=== PATIENT | male | born 2000 | race Caucasian/White ===

== ENCOUNTER 2020-06-13 03:15 | Observation (INO) ==
[2020-06-13] MEDS ORDERED: AMPICILLIN/SULBACTAM SOD 3,000 MG in 0.9 % SODIUM CHLORIDE 100 ML IV STA (04:44)
[2020-06-13 05:11] LABS: Basophils # (auto) 0.01 K/uL (0-0.2); Basophils % (auto) 0.1 %; Eosinophils # (auto) 0.14 K/uL (0-0.5); Eosinophils % (auto) 1.4 %; Hematocrit (blood only) 43.1 % (42-52); Hemoglobin 15.6 g/dL (14.0-18.0); Immature Granulocytes # (auto) 0.02 K/uL (0.00-0.02); Immature Granulocytes % (auto) 0.2 %; Lymphocytes # (auto) 1.12 K/uL (1.2-3.4); Lymphocytes % (auto) 11.5 %; Mean Corpuscular Hemoglobin 32.4 pg (25-34); Mean Corpuscular Hgb Conc 36.2 g/dL (32-36); Mean Corpuscular Volume 89.6 fL (80-100); Mean Platelet Volume 8.7 fL (7.4-10.4); Monocytes # (auto) 0.56 K/uL (0.11-0.59); Monocytes % (auto) 5.8 %; Neutrophils # (auto) 7.88 K/uL (1.4-6.5); Platelet Count 317 K/uL (130-400); RDW Coefficient of Variation 12.4 % (11.5-14.5); RDW Standard Deviation 40.5 fL (36.4-46.3); Red Blood Count 4.81 M/uL (4.7-6.1); White Blood Count 9.73 K/uL (4.8-10.8)
[2020-06-13] MEDS ORDERED: ONDANSETRON INJ 2 MG/ML 2 ML VIAL IV STA (05:17)
[2020-06-13] MEDS ORDERED: fentaNYL citrate 100 MCG/2 ML VIAL IV STA (05:17)
[2020-06-13] MEDS ORDERED: ACETAMINOPHEN 1000 MG/100 ML IV IV STA (05:17)
[2020-06-13 05:28] LABS: BUN Creatinine Ratio 18.8 (10-20); Calcium 8.5 mg/dl (8.5-10.1); Creatinine Clr Calc Pharmacy 150.9 ml/min; Est GFR (African American) 135.5; Est GFR (Non-African American) 116.9; Potassium 3.4 mmol/L (3.5-5.1)
[2020-06-13 05:30] LABS: Albumin Globulin Ratio 1.1 (0.9-2); Bilirubin,Total 0.2 mg/dl (0.2-1); Globulin 3.7 gm/dl (2.5-4.0); Total Protein 7.7 gm/dl (6.4-8.2)
[2020-06-13 06:23] LABS: Influenza A virus by PCR Negative (Neg); Influenza B virus by PCR Negative (Neg); RSV by PCR Negative (Neg); SARS CoV2 RNA(COVID-19) InHosp NEGATIVE (Negative)
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
--- NOTE | 2020-06-13 07:33 | CT Scan Report ---
CT head/brain wo con CLINICAL HISTORY: Head trauma. COMPARISON STUDY: No previous studies for comparison. TECHNIQUE: Axial CT of the brain is performed from the vertex to the skull base. IV contrast was not administered for this examination. A dose lowering technique was utilized adhering to the principles of ALARA. CT DOSE: 887.42 mGy.cm FINDINGS: No intra or extra-axial mass lesions are visualized. There is no CT evidence of acute cortical infarc tion. There is no evidence of midline shift. There is no acute hemorrhage. No calvarial fractures ar e visualized. There is no evidence of pathologic ventricular dilatation. There is no evidence of acute sinusitis IMPRESSION: No acute intracranial findings ACT 112: Negative or not required by law. Electronically signed by: Hieu Grey M.D. 06/13/2020 7:32 AM
--- NOTE | 2020-06-13 08:33 | CT Scan Report ---
CT facial bones wo con CT DOSE: CLINICAL HISTORY: Facial pain status post trauma COMPARISON STUDY: No previous studies for comparison. TECHNIQUE: Helical images were acquired in the transverse plane. The study was reviewed and analyzed on the independent 3-D workstation. A dose lowering technique was utilized adhering to the principle s of ALARA. The pterygoid plates appear intact. The zygomatic arches appear intact. The globes appear intact. There is no evidence of orbital emphysema. The orbital romero and floor appear intact. There is no evidence of mandibular condyle dislocation. There is a vertical fracture through the anterior body of the right hemimandible. There is overlying soft tissue swelling and gas. IMPRESSION: 1. Vertical fracture through the anterior body of the right hemimandible. 2. No evidence of condylar dislocation. ACT 112: Negative or not required by law. Electronically signed by: Hieu Grey M.D. 06/13/2020 8:31 AM
--- NOTE | 2020-06-13 09:11 | Anesthesiology Consultation ---
Date of Service June 13, 2020 Assessment & Plan Chart Review Chart Review: Acceptable Risk for Surgery Consults Requested none discussed risks of nasal intub with pt. he knows to expected postop nasal discomfort. plan for glidescope to minimize jaw movement. postop wiring per surgeon. consented. ASA ASA2 Proposed Anesthesia Anesthesia Type: General (nasal ETT requested by surgeon) Risk / Benefits Reviewed With: PT / POA / Parent / Guardian, Accepts Plan and Informed Consent Obtained History Surgery Operation Date: 06/13/20 10:00 Proposed Procedures p Closed Reduction Mandible - Nick Prabhakar, DMD Height/Weight Height: 5 ft 11 in Weight: 99.3 kg Allergies Allergy/AdvReac Type Severity Reaction Status Date / Time amoxicillin [From Augmentin] Allergy Severe Hives Unverified 06/13/20 07:00 clavulanic acid Allergy Severe Hives Unverified 06/13/20 07:00 [From Augmentin] Medications Home Medications Medication Instructions Recorded Confirmed Last Taken No Known Home Medications 06/13/20 06/13/20 Unknown NPO Date Last Intake of Fluids: 06/13/20 Time Last Intake of Fluids: 01:30 Date Last Intake of Solids: 06/12/20 Time Last Intake of Solids: 20:00 Past Medical History Medical History Patient denies medical problems Exercise / Class Metabolic Activity II 4-5 Yardwork/Stairs/Walk up hill Past Surgical History Surgical History (Updated 06/13/20 @ 09:30 by Temitope Benavidez DO) H/O eye surgery Past Anesthesia History No Hx of Anesthesia Complications and No Family Hx of Anesthesia Complications History of PONV No Hx of PONV and No Hx of Motion Sickness Social History Smoking Status: Never smoker Physical Exam Vital Signs Last Vital Signs Temp 37.0 C 06/13/20 03:17 Pulse 103 H 06/13/20 08:49 Resp 18 06/13/20 08:49 BP 140/75 06/13/20 08:49 Pulse Ox 98 06/13/20 08:49 ENMT Nose: + face asymmetric, + facial edema and + facial tenderness Mouth: + TMJ abnormality, + mouth trauma, + restricted motion of mouth and + loose teeth Thyromental Distance: > or= 3.5 Finger Breadths Mallampati Class: III lower right bicuspid loose/involved in fx. Significant pain in opening. MP3 secondary to poor mouth opening and pain. Neck normal visual inspection and trachea midline; neck extension not limited Respiratory normal respiratory effort Auscultation: lungs clear to auscultation bilaterally Cardiovascular Rate/Rhythm: regular rate and regular rhythm Heart Sounds: no murmur Musculoskeletal Spine: normal cervical ROM Extremities: full ROM of extremities Neurologic moves all extremities Psychiatric Orientation: alert and oriented x 3 Testing Laboratory Results 06/13/20 Unknown 06/13/20 Unknown 06/13/20 COVID cepheid neg Other Testing 06/13/20 CT facial bones wo con CT DOSE: CLINICAL HISTORY: Facial pain status post trauma COMPARISON STUDY: No previous studies for comparison. TECHNIQUE: Helical images were acquired in the transverse plane. The study was reviewed and analyzed on the independent 3-D workstation. A dose lowering technique was utilized adhering to the principles of ALARA. The pterygoid plates appear intact. The zygomatic arches appear intact. The globes appear intact. There is no evidence of orbital emphysema. The orbital romero and floor appear intact. There is no evidence of mandibular condyle dislocation. There is a vertical fracture through the anterior body of the right hemimandible. There is overlying soft tissue swelling and gas. IMPRESSION: 1. Vertical fracture through the anterior body of the right hemimandible. 2. No evidence of condylar dislocation. 06/13/20 CT head/brain wo con CLINICAL HISTORY: Head trauma. COMPARISON STUDY: No previous studies for comparison. TECHNIQUE: Axial CT of the brain is performed from the vertex to the skull base. IV contrast was not administered for this examination. A dose lowering technique was utilized adhering to the principles of ALARA. CT DOSE: 887.42 mGy.cm FINDINGS: No intra or extra-axial mass lesions are visualized. There is no CT evidence of acute cortical infarction. There is no evidence of midline shift. There is no acute hemorrhage. No calvarial fractures are visualized. There is no evidence of pathologic ventricular dilatation. There is no evidence of acute sinusitis IMPRESSION: No acute intracranial findings
[2020-06-13] MEDS ORDERED: MIDAZOLAM HCL 1 MG/ML 2ML VIAL ONE (09:28)
[2020-06-13] MEDS ORDERED: LIDOCAINE HCL 2% 2 ML VIAL/AMP(20MG/ML) INFIL ONE (09:28)
[2020-06-13] MEDS ORDERED: PROPOFOL IV EMULSION 10 MG/ML 20 ML VIAL IV ONE (09:28)
[2020-06-13] MEDS ORDERED: ONDANSETRON INJ 2 MG/ML 2 ML VIAL ONE (09:28)
[2020-06-13] MEDS ORDERED: DEXAMETHASONE SOD INJ 4 MG/ML VIAL ONE (09:28)
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
[2020-06-13] MEDS ORDERED: fentaNYL citrate 100 MCG/2 ML VIAL ONE ×2 (09:29→10:41)
[2020-06-13] MEDS ORDERED: ONDANSETRON INJ 2 MG/ML 2 ML VIAL IV PRN ×2 (09:36→11:58)
[2020-06-13] MEDS ORDERED: ATROPINE SULFATE 0.1 MG/ML 10ML SYR IV PRN (09:36)
[2020-06-13] MEDS ORDERED: MEPERIDINE HCL 25 MG/ML CARP/VIAL IV PRN (09:36)
[2020-06-13] MEDS ORDERED: OXYMETAZOLINE 0.05% 30 ML BTL ONE (09:36)
[2020-06-13] MEDS ORDERED: fentaNYL citrate 100 MCG/2 ML VIAL IV PRN (09:36)
[2020-06-13] MEDS ORDERED: MoRPHine SULFATE 10 MG/ML CARP/VIAL IV PRN (09:36)
[2020-06-13] MEDS ORDERED: DEXAMETHASONE SOD INJ 4 MG/ML VIAL IV PRN (09:36)
[2020-06-13] MEDS ORDERED: ePHEDrine sulfate 50 MG/ML AMP IV PRN (09:36)
[2020-06-13] MEDS ORDERED: CHLORHEXIDINE GLUCONATE 0.12% 480 ML ONE (10:07)
[2020-06-13] MEDS ORDERED: LIDOCAINE 2%/EPINEPHRINE 1:100,000 1.8 ML CARTRIDGE ONE (10:07)
[2020-06-13] MEDS ORDERED: BUPIVACAINE/EPINEPHRINE 0.5% 1:200,000 1.8 ML CARP ONE (10:48)
[2020-06-13] MEDS ORDERED: NEOSTIGMINE METHYLSULFATE 5 MG/5 ML SYR ONE (11:03)
[2020-06-13] MEDS ORDERED: GLYCOPYRROLATE 0.2 MG/ML VIAL ONE (11:03)
[2020-06-13] MEDS ORDERED: ROCURONIUM BROMIDE 10 MG/ML 5 ML VIAL IV ONE (11:03)
[2020-06-13] MEDS ORDERED: SUCCINYLCHOLINE CHLORIDE 20 MG/ML 10 ML VIAL IV ONE (11:03)
[2020-06-13] MEDS ORDERED: TRIAMCINOLONE ACET 0.1% OINT 15 GM TUBE ONE (11:53)
[2020-06-13] MEDS ORDERED: OXYMETAZOLINE 0.05% 30 ML BTL PRN (11:58)
[2020-06-13] MEDS ORDERED: MoRPHine SULFATE 2 MG/ML CARP IV PRN (11:58)
[2020-06-13] MEDS ORDERED: MoRPHine SULFATE 4 MG/ML 1 ML CARP\\VIAL IV PRN (11:58)
[2020-06-13] MEDS ORDERED: LORazepam 1 MG/2 ML VIAL IV PRN (11:58)
--- NOTE | 2020-06-13 12:30 | Anesthesiology Progress Note ---
Date of Service June 13, 2020 Anesthesia Post Procedure Vital Signs Vital Signs: Temp Pulse Pulse Pulse Resp BP BP 06/13/20 12:25 68 14 149/72 H 06/13/20 12:15 81 14 164/90 H 06/13/20 12:05 36.6 C 86 14 164/60 H 06/13/20 09:58 06/13/20 08:49 103 H 18 06/13/20 03:17 37.0 C 115 H 16 145/88 H BP Pulse Ox 06/13/20 12:25 98 06/13/20 12:15 98 06/13/20 12:05 100 06/13/20 09:58 155/92 H 06/13/20 08:49 140/75 98 06/13/20 03:17 97 Transfer of Care Handoff Completed per policy Notes Mental Status: alert / awake / arousable Patient Amnestic to Procedure: Yes Nausea / Vomiting: adequately controlled Pain: adequately controlled Airway Patency, RR, SpO2: stable & adequate BP & HR: stable & adequate Hydration State: stable & adequate Anesthetic Complications: no major complications apparent and Pt Satisfied with anesthetic care
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
--- NOTE | 2020-06-13 12:36 | XRay Report ---
XR mandible <4V CLINICAL HISTORY: Status Post-Op Surgery AP Mandibular and Jaw View fracture status post surgery COMPARISON STUDY: CT scan dated 06/13/2020 FINDINGS: There is a nondisplaced fracture of the right mandibular body. There is no condylar disloca tion. The teeth are wired. IMPRESSION: 1. Nondisplaced fracture of the right mandibular body 2. No evidence of condylar dislocation. ACT 112: Negative or not required by law. Electronically signed by: Hieu Grey M.D. 06/13/2020 12:35 PM
[2020-06-13] MEDS ORDERED: [UNRECOGNIZED DRUG - OTHER] IV SCH (13:00)
[2020-06-13] MEDS: KETOROLAC 30 MG/ML VIAL IV SCH ×2 (14:07→19:13)
[2020-06-13] MEDS: AMPICILLIN/SULBACTAM SOD 1,500 MG in 0.9 % SODIUM CHLORIDE 100 ML IV SCH ×2 (14:26→19:21)
[2020-06-13] MEDS: CHLORHEXIDINE GLUCONATE 0.12% 480 ML MT SCH ×2 (18:20→20:13)
[2020-06-13] MEDS: TRIAMCINOLONE ACET 0.1% OINT 15 GM TUBE EXT SCH ×2 (20:15→20:20)
[2020-06-14] MEDS: AMPICILLIN/SULBACTAM SOD 1,500 MG in 0.9 % SODIUM CHLORIDE 100 ML IV SCH ×2 (01:04→08:14)
[2020-06-14] MEDS: KETOROLAC 30 MG/ML VIAL IV SCH ×2 (01:04→08:14)
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
[2020-06-14] MEDS: CHLORHEXIDINE GLUCONATE 0.12% 480 ML MT SCH (09:16)
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
== END 2020-06-14 11:08 | disposition home or self-care (01) ==
LOC: ED 03:15 → OR 09:59 → 3N 09:59